=== PATIENT | male | born 1975 | race American Indian/Alaskan Native ===

== ENCOUNTER 2017-07-28 03:31 | Emergency (ER) | payer SELFPAY ==
[2017-07-28 04:21] VITALS: BP 128/75
--- NOTE | 2017-07-28 08:06 | Emergency Department Report ---
ED Male HPI - General Chief complaint: Urogenital-Male Stated complaint: PENIS PAIN Time Seen by Provider: 07/28/17 08:00 Source: patient Mode of arrival: Ambulatory Limitations: No Limitations - History of Present Illness Initial comments: 41-year-old -[place] male comes in for complaint of having pain in his penis he reports the pain 8 on a 10 about 2 days. Patient states he has no discharge no burning when he urinates states no pain swelling or discomfort to the scrotal testicle area. He reports he is sexually active with females for partners in the last year unprotected no past medical history currently takes no medications and has no known drug allergies. - Related Data Previous Rx's Medication Instructions Recorded Last Taken Type Nystatin Cream [Mycostatin Cream] 1 applic TP TID 7 Days #1 tube 07/28/17 Unknown Rx Allergies Allergy/AdvReac Type Severity Reaction Status Date / Time No Known Allergies Allergy Unverified 07/28/17 05:11 ED Review of Systems ROS: Stated complaint: PENIS PAIN Other details as noted in HPI Constitutional: denies: chills, fever Eyes: denies: eye pain, eye discharge, vision change ENT: denies: ear pain, throat pain Respiratory: denies: cough, shortness of breath, wheezing Cardiovascular: denies: chest pain, palpitations Endocrine: no symptoms reported Gastrointestinal: denies: abdominal pain, nausea, diarrhea Genitourinary: other (penis pain). denies: urgency, dysuria Musculoskeletal: denies: back pain, joint swelling, arthralgia Skin: denies: rash, lesions Neurological: denies: headache, weakness, paresthesias Psychiatric: denies: anxiety, depression Hematological/Lymphatic: denies: easy bleeding, easy bruising ED Past Medical Hx - Past Medical History Previous Medical History?: No - Surgical History Past Surgical History?: No - Social History Smoking Status: Current Every Day Smoker Substance Use Type: None - Medications Home Medications: Home Medications Medication Instructions Recorded Confirmed Last Taken Type Nystatin Cream [Mycostatin Cream] 1 applic TP TID 7 Days #1 tube 07/28/17 Unknown Rx ED Physical Exam - General Limitations: No Limitations General appearance: alert, in no apparent distress - Head Head exam: Present: atraumatic, normocephalic - GI/Abdominal GI/Abdominal exam: Present: soft, normal bowel sounds - exam: Present: circumcision, other (penis skin has a rash that is demarcated dry and a little scaly.). Absent: testicular tenderness, urethral discharge, scrotal swelling - Extremities Exam Extremities exam: Present: normal inspection - Neurological Exam Neurological exam: Present: alert, oriented X3 - Psychiatric Psychiatric exam: Present: normal affect, normal mood - Skin Skin exam: Present: warm, dry, intact, normal color, rash (penis) ED Course Vital Signs 07/28/17 07/28/17 04:17 05:13 Temperature 98.3 F 98.3 F Pulse Rate 71 69 Respiratory 18 18 Rate Blood Pressure 128/75 128/75 O2 Sat by Pulse 100 98 Oximetry ED Medical Decision Making - Medical Decision Making He been evaluated by this provider fast track. It appears the patient has maybe a tinea rash on the shaft of the penis. Discussed the patient I'll place him on antifungal medication for 10 to use good hygiene and follow up with his primary care provider in 3-5 days. Critical care attestation.: If time is entered above; I have spent that time in minutes in the direct care of this critically ill patient, excluding procedure time. ED Disposition Clinical Impression: Tinea Disposition: DC-01 TO HOME OR SELFCARE Is pt being admited?: No Does the pt Need Aspirin: No Condition: Stable Instructions: Jock Itch (ED) Additional Instructions: Please used the cream on your rash. Please use good hygiene. Follow up with her primary care provider if not getting better. Prescriptions: Nystatin Cream [Mycostatin Cream] 1 applic TP TID 7 Days #1 tube Referrals: PRIMARY CARE, [Primary Care Provider] - 3-5 Days BERTRAM NIELSON MD [Staff Physician] - 3-5 Days Forms: Work/School Release Form(ED)
[2017-07-28 09:21] LABS: Bilirubin,Urine NEG (Negative); Blood,Urine NEG (Negative); Color,Urine Yellow (Yellow); Mucus,Urine FEW /HPF; Nitrite,Urine NEG (Negative); Protein,Urine <15 mg/dL mg/dL (Negative)
== END 2017-07-28 08:34 | disposition home or self-care (01) ==
LOC: ED 03:31
DX: B35.9 Dermatophytosis, unspecified (principal); F17.200 Nicotine dependence, unspecified, uncomplicated
CPT/HCPCS: 81001; 87591; 99283

== ENCOUNTER 2018-12-08 20:02 | Emergency (ER) | payer SELFPAY ==
[2018-12-08 20:08] VITALS: BP 114/73
--- NOTE | 2018-12-08 20:49 | Event Note ---
ED Screening Note Date of service: 12/08/18 Time: 20:45 ED Screening Note: 43 y/o male comes in for herpes flare up. This initial assessment/diagnostic orders/clinical plan/treatment(s) is/are subject to change based on patients health status, clinical progression and re- assessment by fellow clinical providers in the ED. Further treatment and workup at subsequent clinical providers discretion. Patient/guardian urged not to elope from the ED as their condition may be serious if not clinically assessed and managed. Initial orders include:
--- NOTE | 2018-12-08 21:43 | Emergency Department Report ---
ED Male HPI - General Chief complaint: Urogenital-Male Stated complaint: OUTBREAK/HERPES Time Seen by Provider: 12/08/18 21:29 Source: patient Mode of arrival: Ambulatory Limitations: No Limitations - History of Present Illness Initial comments: 43 y/o male comes in for herpes flare up. rash to penis vesicles painful no penile discharge no fever no chills no abdominal pain no n/v hx genital herpes usually tx'd with jorge PHELPS Complaint: groin pain Onset/Timin -: days(s) Location: penis Radiation: none Severity: moderate Severity scale (0 -10): 5 Quality: burning Consistency: constant Improves with: none Worsens with: none rash - Related Data Sexually active: Yes (partner being treated ) Previous Rx's Medication Instructions Recorded Last Taken Type Nystatin Cream [Mycostatin Cream] 1 applic TP TID 7 Days #1 tube 07/28/17 Unknown Rx Valacyclovir HCl [Valtrex] 1,000 mg PO BID #20 tablet 12/08/18 Unknown Rx Allergies Allergy/AdvReac Type Severity Reaction Status Date / Time No Known Allergies Allergy Verified 12/08/18 20:04 ED Review of Systems ROS: Stated complaint: OUTBREAK/HERPES Other details as noted in HPI Constitutional: denies: chills, fever Eyes: denies: eye pain, eye discharge, vision change ENT: denies: ear pain, throat pain Respiratory: denies: cough, shortness of breath, wheezing Cardiovascular: denies: chest pain, palpitations Endocrine: no symptoms reported Gastrointestinal: denies: abdominal pain, nausea, diarrhea Genitourinary: other (rash vesicles ). denies: urgency, dysuria Musculoskeletal: denies: back pain, joint swelling, arthralgia Skin: denies: rash, lesions Neurological: denies: headache, weakness, paresthesias Psychiatric: denies: anxiety, depression Hematological/Lymphatic: denies: easy bleeding, easy bruising ED Past Medical Hx - Past Medical History Previous Medical History?: No - Surgical History Past Surgical History?: Yes Additional Surgical History: left ankle surgery - Social History Smoking Status: Current Every Day Smoker - Medications Home Medications: Home Medications Medication Instructions Recorded Confirmed Last Taken Type Nystatin Cream [Mycostatin Cream] 1 applic TP TID 7 Days #1 tube 07/28/17 Unknown Rx Valacyclovir HCl [Valtrex] 1,000 mg PO BID #20 tablet 12/08/18 Unknown Rx ED Physical Exam - General Limitations: No Limitations General appearance: alert, in no apparent distress - Head Head exam: Present: atraumatic, normocephalic - Eye Eye exam: Present: normal appearance, PERRL, EOMI Pupils: Present: normal accommodation - ENT ENT exam: Present: mucous membranes moist - Neck Neck exam: Present: normal inspection - Respiratory Respiratory exam: Present: normal lung sounds bilaterally. Absent: respiratory distress, wheezes, rales, rhonchi, stridor, chest wall tenderness - Cardiovascular Cardiovascular Exam: Present: regular rate, normal rhythm, normal heart sounds. Absent: systolic murmur, diastolic murmur, rubs, gallop - GI/Abdominal GI/Abdominal exam: Present: soft, normal bowel sounds. Absent: distended, tenderness, bruit, hernia - Rectal Rectal exam: Present: deferred - Extremities Exam Extremities exam: Present: normal inspection, full ROM, normal capillary refill - Back Exam Back exam: Present: normal inspection, full ROM. Absent: tenderness, CVA tenderness (R), CVA tenderness (L), rash noted - Neurological Exam Neurological exam: Present: alert, oriented X3, CN II-XII intact, normal gait, reflexes normal - Psychiatric Psychiatric exam: Present: normal affect, normal mood - Skin Skin exam: Present: warm, dry, intact, normal color. Absent: rash ED Course Vital Signs 12/08/18 20:07 Temperature 98.6 F Pulse Rate 82 Respiratory 18 Rate Blood Pressure 114/73 O2 Sat by Pulse 97 Oximetry ED Medical Decision Making - Medical Decision Making this is genital hsv outbreak plan valtrax as usual tx bid x 10 days pt will follow up with pcp in 2-3 days , follow up with [facility] department if unble to follow up with pcp . given referral to [facility]. Critical care attestation.: If time is entered above; I have spent that time in minutes in the direct care of this critically ill patient, excluding procedure time. ED Disposition Clinical Impression: Genital HSV Qualifiers: Herpes simplex infection site: penis Qualified Code(s): A60.01 - Herpesviral infection of penis Disposition: TO HOME OR SELFCARE Is pt being admited?: No Does the pt Need Aspirin: No Condition: Stable Instructions: Genital Herpes Simplex (ED) Prescriptions: Valacyclovir HCl [Valtrex] 1,000 mg PO BID #20 tablet Referrals: [facility] [Outside] - 3-5 Days [facility] [Outside] - 3-5 Days Forms: Work/School Release Form(ED) Time of Disposition: 21:46
== END 2018-12-08 22:54 | disposition home or self-care (01) ==
LOC: ED 20:02
DX: A60.01 Herpesviral infection of penis (principal); F17.200 Nicotine dependence, unspecified, uncomplicated
CPT/HCPCS: 99282

== ENCOUNTER 2019-01-04 11:33 | Emergency (ER) | payer BC, OTHER ==
[2019-01-04 11:58] VITALS: BP 201/94
--- NOTE | 2019-01-04 11:58 | Emergency Department Report ---
Blank Doc - Documentation Documentation: This is a 43-year-old male that presents with bilateral leg redness. Right leg does seem to have induration noted on exam. This initial assessment/diagnostic orders/clinical plan/treatment(s) is/are subject to change based on patient's health status, clinical progression and re- assessment by fellow clinical providers in the ED. Further treatment and workup at subsequent clinical providers discretion. Patient/guardians urged not to elope from the ED as their condition may be serious if not clinically assessed and managed. Initial orders include: 1- Patient sent to [facility] for further evaluation and treatment
[2019-01-04] MEDS ORDERED: TRIPLE ANTIBIOTIC TP ONE (13:22)
--- NOTE | 2019-01-04 13:25 | Emergency Department Report ---
Abscess Boil HPI - HPI Chief Complaint: Skin Rash Stated Complaint: RT LEG SPIDER BITES/PAIN Time Seen by Provider: 01/04/19 11:56 Duration: >1 Week Severity: Mild History: Yes Purulent Drainage, Yes Insect Bite, No Fever, No Pain, No Numbness, No Foreign Body, No Previous History HPI: Patient is a 43-year-old male comes to the ER with insect bites on his lower legs. The insect bites are open and draining. Patient states he popped them. He does on to explain that he was unable to get his valacyclovir field because of a check issue. And when he was here last time he did not get his nystatin prescription. There is a prescription in the system for the nystatin but the patient states that he never caught it. His vital signs are stable he is nontoxic ambulatory on assessment. Home Medications: Previous Rx's Medication Instructions Recorded Last Taken Type Amoxicillin [Trimox CAP] 500 mg PO BID #20 capsule 01/04/19 Unknown Rx Nystatin Cream [Mycostatin Cream] 1 applic TP TID 7 Days #1 tube 01/04/19 Unknown Rx Valacyclovir HCl [Valtrex] 1,000 mg PO BID #20 tablet 01/04/19 Unknown Rx Allergies/Adverse Reactions: Allergies Allergy/AdvReac Type Severity Reaction Status Date / Time No Known Allergies Allergy Verified 12/08/18 20:04 ED Review of Systems ROS: Stated complaint: RT LEG SPIDER BITES/PAIN Other details as noted in HPI Comment: All other systems reviewed and negative ED Past Medical Hx - Past Medical History Previous Medical History?: Yes Additional medical history: herpes - Surgical History Past Surgical History?: Yes Additional Surgical History: left ankle surgery - Social History Smoking Status: Current Every Day Smoker Substance Use Type: Marijuana - Medications Home Medications: Home Medications Medication Instructions Recorded Confirmed Last Taken Type Amoxicillin [Trimox CAP] 500 mg PO BID #20 capsule 01/04/19 Unknown Rx Nystatin Cream [Mycostatin Cream] 1 applic TP TID 7 Days #1 tube 01/04/19 Unknown Rx Valacyclovir HCl [Valtrex] 1,000 mg PO BID #20 tablet 01/04/19 Unknown Rx ED Abscess Boil Physical Exam - Exam General: Vital signs noted. No distress. Alert and acting appropriately. Exam: WDWN patient in NAD. VS per RN flow sheet. Alert and oriented to person, place and time. S1-S2. No S3 or S4. No systolic or diastolic murmur. No JVD. No pitting edema. HR 90. bp 160/58. Lungs clear to auscultation bilaterally anteriorly and posteriorly. Abdomen soft nontender bowel sounds x 4. Moves all extremities well. Mood and affect appropriate. numerous small insect bites on legs. pt has "popped them" and they are draining ED Course Vital Signs 01/04/19 11:56 Temperature 98.5 F Pulse Rate 109 H Respiratory 18 Rate Blood Pressure 201/94 O2 Sat by Pulse 98 Oximetry Critical care attestation.: If time is entered above; I have spent that time in minutes in the direct care of this critically ill patient, excluding procedure time. ED Medical Decision Making - Medical Decision Making bites cleaned pt instructed on wound care. dc home with dc plan of care VS rechecked by provider. see assessment Vital Signs 01/04/19 11:56 Temperature 98.5 F Pulse Rate 109 H Respiratory 18 Rate Blood Pressure 201/94 O2 Sat by Pulse 98 Oximetry ED Disposition Clinical Impression: Insect bite, Medication refill, Secondary infection of skin, Herpes Disposition: DC-01 TO HOME OR SELFCARE Is pt being admited?: No Does the pt Need Aspirin: No Condition: Stable Instructions: Insect Bite or Sting (ED) Additional Instructions: DIET TOLERATED MEDS ORDERED TODAY IN ER FOLLOW INSTRUCTIONS ON THE BOTTLE FOLLOW UP PCP WITHIN 48 HOURS TO ENSURE YOU ARE GETTING BETTER ACTIVITY TOLERATED MOTRIN OR TYLENOL FOR PAIN OR FEVER RETURN TO THE ER FOR WORSENING SYMPTOMS NOT RELIEVED BY YOUR MEDICATIONS. Prescriptions: Nystatin Cream [Mycostatin Cream] 1 applic TP TID 7 Days #1 tube Amoxicillin [Trimox CAP] 500 mg PO BID #20 capsule Valacyclovir HCl [Valtrex] 1,000 mg PO BID #20 tablet Referrals: BETHANY ABAD MD [Primary Care Provider] - 3-5 Days Time of Disposition: 13:24
== END 2019-01-04 13:37 | disposition home or self-care (01) ==
LOC: ED 11:33
DX: S80.861A Insect bite (nonvenomous), right lower leg, initial encounter (principal); F17.200 Nicotine dependence, unspecified, uncomplicated; F12.10 Cannabis abuse, uncomplicated; Z76.0 Encounter for issue of repeat prescription; W57.XXXA Bitten or stung by nonvenomous insect and other nonvenomous arthropods, initial encounter; Y93.89 Activity, other specified; Y92.89 Other specified places as the place of occurrence of the external cause; Y99.8 Other external cause status
CPT/HCPCS: 99282

== ENCOUNTER 2019-08-10 17:31 | Emergency (ER) | payer SELFPAY ==
[2019-08-10 18:18] VITALS: BP 117/68
--- NOTE | 2019-08-10 20:35 | Emergency Department Report ---
- General Chief complaint: Extremity Injury, Lower Stated complaint: INFECTED TOES Time Seen by Provider: 08/10/19 20:28 Source: patient Mode of arrival: Ambulatory Limitations: No Limitations - History of Present Illness Initial comments: pt is a 43 yo who presents to the ED with c/o "an infection" to his right foot that began three weeks ago. he states he went to [facility] on 07/10/2019 and was given a prescription for keflex but it came right back. he states he also had an XR of the foot which was normal. he does not remember getting bit by anything or getting scratched. he states that two days ago he manually expressed it and purulent drainage came out. PMHx Hep B. no allergies to meds. - Related Data Previous Rx's Medication Instructions Recorded Last Taken Type Amoxicillin [Trimox CAP] 500 mg PO BID #20 capsule 01/04/19 Unknown Rx Nystatin Cream [Mycostatin Cream] 1 applic TP TID 7 Days #1 tube 01/04/19 Unknown Rx Valacyclovir HCl [Valtrex] 1,000 mg PO BID #20 tablet 01/04/19 Unknown Rx Mupirocin [Bactroban 2%] 1 applic TP TID #1 tube 08/10/19 Unknown Rx Sulfamethoxazole/Trimethoprim 2 each PO BID 10 Days #40 tablet 08/10/19 Unknown Rx [Bactrim DS TAB] Allergies Allergy/AdvReac Type Severity Reaction Status Date / Time No Known Allergies Allergy Verified 12/08/18 20:04 Abscess Boil HPI - HPI Chief Complaint: Extremity Injury, Lower Stated Complaint: INFECTED TOES Time Seen by Provider: 08/10/19 20:28 Home Medications: Previous Rx's Medication Instructions Recorded Last Taken Type Amoxicillin [Trimox CAP] 500 mg PO BID #20 capsule 01/04/19 Unknown Rx Nystatin Cream [Mycostatin Cream] 1 applic TP TID 7 Days #1 tube 01/04/19 Unknown Rx Valacyclovir HCl [Valtrex] 1,000 mg PO BID #20 tablet 01/04/19 Unknown Rx Mupirocin [Bactroban 2%] 1 applic TP TID #1 tube 08/10/19 Unknown Rx Sulfamethoxazole/Trimethoprim 2 each PO BID 10 Days #40 tablet 08/10/19 Unknown Rx [Bactrim DS TAB] Allergies/Adverse Reactions: Allergies Allergy/AdvReac Type Severity Reaction Status Date / Time No Known Allergies Allergy Verified 12/08/18 20:04 ED Review of Systems ROS: Stated complaint: INFECTED TOES Other details as noted in HPI Comment: All other systems reviewed and negative ED Past Medical Hx - Past Medical History Previous Medical History?: No Additional medical history: herpes - Surgical History Past Surgical History?: No Additional Surgical History: left ankle surgery - Social History Smoking Status: Current Every Day Smoker Substance Use Type: Marijuana - Medications Home Medications: Home Medications Medication Instructions Recorded Confirmed Last Taken Type Amoxicillin [Trimox CAP] 500 mg PO BID #20 capsule 01/04/19 Unknown Rx Nystatin Cream [Mycostatin Cream] 1 applic TP TID 7 Days #1 tube 01/04/19 U nknown Rx Valacyclovir HCl [Valtrex] 1,000 mg PO BID #20 tablet 01/04/19 Unknown Rx Mupirocin [Bactroban 2%] 1 applic TP TID #1 tube 08/10/19 Unknown Rx Sulfamethoxazole/Trimethoprim 2 each PO BID 10 Days #40 tablet 08/10/19 Unknown Rx [Bactrim DS TAB] ED Physical Exam - General Limitations: No Limitations General appearance: alert, in no apparent distress - Head Head exam: Present: atraumatic, normocephalic - Eye Eye exam: Present: normal appearance - ENT ENT exam: Present: mucous membranes moist - Neurological Exam Neurological exam: Present: alert, oriented X3 - Psychiatric Psychiatric exam: Present: normal affect, normal mood - Skin Skin exam: Present: warm, other (ulceration present between the small toe and the 4th toe, there is small amount of purulent drainage, no surrounding erythema, no surrounding warmth) ED Course Vital Signs 08/10/19 18:16 Temperature 98.1 F Pulse Rate 80 Respiratory 16 Rate Blood Pressure 117/68 O2 Sat by Pulse 100 Oximetry Critical care attestation.: If time is entered above; I have spent that time in minutes in the direct care of this critically ill patient, excluding procedure time. ED Disposition Clinical Impression: Ulcer of right foot Qualifiers: Non-pressure ulcer stage: limited to breakdown of skin Qualified Code(s): L97.511 - Non-pressure chronic ulcer of other part of right foot limited to breakdown of skin Cellulitis Qualifiers: Site of cellulitis: extremity Site of cellulitis of extremity: lower extremity Laterality: right Qualified Code(s): L03.115 - Cellulitis of right lower limb Disposition: DC-01 TO HOME OR SELFCARE Is pt being admited?: No Does the pt Need Aspirin: No Condition: Stable Instructions: Cellulitis (ED), Acute Wound Care (ED), Pressure Ulcer (ED) Additional Instructions: please use medication as prescribed. increase your water intake. keep area clean and dry. wash with soap and water and immediately dry. soak in epsom salt. change socks frequently, do not let feet get wet. follow up with a primary care doctor in the next 3 days. the area needs to be reexamined in 3 days. return to the emergency room immediately for any new or worsening symptoms. Prescriptions: Sulfamethoxazole/Trimethoprim [Bactrim DS TAB] 2 each PO BID 10 Days #40 tablet Mupirocin [Bactroban 2%] 1 applic TP TID #1 tube Referrals: CONNER ESTRADA MD [Staff Physician] - 2-3 Days [facility] [Outside] - 2-3 Days [facility] [Outside] - 2-3 Days Time of Disposition: 20:38 Print Language: ROMANIAN
[2019-08-10] MEDS ORDERED: SULFAMETHOXAZOLE/TRIMETHOPRIM 800/160MG DS TAB PO ONE (20:36)
[2019-08-10] MEDS ORDERED: SULFAMETHOXAZOLE/TRIMETHOPRIM 800/160MG DS TAB ONE (20:39)
== END 2019-08-10 20:40 | disposition home or self-care (01) ==
LOC: ED 17:31
DX: L97.511 Non-pressure chronic ulcer of other part of right foot limited to breakdown of skin (principal); L03.115 Cellulitis of right lower limb; F17.200 Nicotine dependence, unspecified, uncomplicated; F12.10 Cannabis abuse, uncomplicated; Z98.890 Other specified postprocedural states; Z79.899 Other long term (current) drug therapy
CPT/HCPCS: 99282

== ENCOUNTER 2019-08-23 23:01 | Emergency (ER) | payer SELFPAY ==
[2019-08-24] MEDS ORDERED: predniSONE 20 MG TAB PO ONE (04:34)
[2019-08-24] MEDS ORDERED: IBUPROFEN 600 MG TAB PO ONE (04:34)
--- NOTE | 2019-08-24 05:06 | Emergency Department Report ---
ED General Adult HPI - General Chief complaint: Extremity Injury, Upper Stated complaint: LT WRIST UNABLE TO LIFT Source: patient Mode of arrival: Ambulatory Limitations: No Limitations - History of Present Illness Initial comments: Patient is a 43-year-old -[place] male with a history of osteoarthritis who presents to the ED with complaint of worsening bilateral knee pain, left wrist and left forearm and elbow pain with numbness and tingling sensations for the last 3 days. 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 Patient denies dizziness, nausea, vomiting, traumatic injury, fall, chest pain or shortness of breath, back pain, neck pain, fever and chills or abdominal pain and hip pain. MD Complaint: Bilateral knee pain; left wrist pain -: Sudden, days(s) (3) Location: upper extremity (left wrist and forearm tingling and numbness), lower extremity (bilateral knees) Radiation: non-radiation Severity scale (0 -10): 10 Quality: aching, sharp Consistency: constant Improves with: none Worsens with: none Associated Symptoms: denies other symptoms. denies: confusion, chest pain, cough, diaphoresis, fever/chills, headaches, loss of appetite, malaise, nausea/vomiting, rash, shortness of breath, syncope, weakness Treatments Prior to Arrival: none - Related Data Previous Rx's Medication Instructions Recorded Last Taken Type Amoxicillin [Trimox CAP] 500 mg PO BID #20 capsule 01/04/19 Unknown Rx Nystatin Cream [Mycostatin Cream] 1 applic TP TID 7 Days #1 tube 01/04/19 Unknown Rx Valacyclovir HCl [Valtrex] 1,000 mg PO BID #20 tablet 01/04/19 Unknown Rx Mupirocin [Bactroban 2%] 1 applic TP TID #1 tube 08/10/19 Unknown Rx Sulfamethoxazole/Trimethoprim 2 each PO BID 10 Days #40 tablet 08/10/19 Unknown Rx [Bactrim DS TAB] Naproxen 500 mg PO Q12H PRN #30 tablet 08/24/19 Unknown Rx predniSONE [Deltasone] 40 mg PO QDAY #12 tab 08/24/19 Unknown Rx tiZANidine [Zanaflex 4mg TAB] 4 mg PO Q8H PRN #21 tablet 08/24/19 Unknown Rx Allergies Allergy/AdvReac Type Severity Reaction Status Date / Time No Known Allergies Allergy Verified 12/08/18 20:04 ED Review of Systems ROS: Stated complaint: LT WRIST UNABLE TO LIFT Other details as noted in HPI Constitutional: denies: chills, fever Eyes: denies: eye pain, eye discharge, vision change ENT: denies: ear pain, throat pain Respiratory: denies: cough, shortness of breath, wheezing Cardiovascular: denies: chest pain, palpitations Endocrine: no symptoms reported Gastrointestinal: denies: abdominal pain, nausea, diarrhea Genitourinary: denies: urgency, dysuria Musculoskeletal: arthralgia (bilateral knee pain; left wrist, forearm and elbow pain), myalgia. denies: back pain, joint swelling Skin: denies: rash, lesions Neurological: denies: headache, weakness, paresthesias Psychiatric: denies: anxiety, depression Hematological/Lymphatic: denies: easy bleeding, easy bruising ED Past Medical Hx - Past Medical History Previous Medical History?: No Additional medical history: herpes - Surgical History Past Surgical History?: Yes Additional Surgical History: left ankle surgery - Social History Smoking Status: Current Every Day Smoker Substance Use Type: Marijuana - Medications Home Medications: Home Medications Medication Instructions Recorded Confirmed Last Taken Type Amoxicillin [Trimox CAP] 500 mg PO BID #20 capsule 01/04/19 Unknown Rx Nystatin Cream [Mycostatin Cream] 1 applic TP TID 7 Days #1 tube 01/04/19 Unknown Rx Valacyclovir HCl [Valtrex] 1,000 mg PO BID #20 tablet 01/04/19 Unknown Rx Mupirocin [Bactroban 2%] 1 applic TP TID #1 tube 08/10/19 Unknown Rx Sulfamethoxazole/Trimethoprim 2 each PO BID 10 Days #40 tablet 08/10/19 Unknown Rx [Bactrim DS TAB] Naproxen 500 mg PO Q12H PRN #30 tablet 08/24/19 Unknown Rx predniSONE [Deltasone] 40 mg PO QDAY #12 tab 08/24/19 Unknown Rx tiZANidine [Zanaflex 4mg TAB] 4 mg PO Q8H PRN #21 tablet 08/24/19 Unknown Rx ED Physical Exam - General Limitations: No Limitations General appearance: alert, in no apparent distress - Head Head exam: Present: atraumatic, normocephalic, normal inspection - Eye Eye exam: Present: normal appearance, PERRL, EOMI Pupils: Present: normal accommodation - ENT ENT exam: Present: normal exam, normal orophraynx, mucous membranes moist, TM's normal bilaterally, normal external ear exam - Neck Neck exam: Present: normal inspection, full ROM. Absent: tenderness, lymphadenopathy - Respiratory Respiratory exam: Present: normal lung sounds bilaterally. Absent: respiratory distress, wheezes, rales, stridor, chest wall tenderness, accessory muscle use, decreased breath sounds - Cardiovascular Cardiovascular Exam: Present: regular rate, normal rhythm, normal heart sounds. Absent: systolic murmur, diastolic murmur, rubs, gallop - GI/Abdominal GI/Abdominal exam: Present: soft, normal bowel sounds. Absent: tenderness, guarding, hyperactive bowel sounds, hypoactive bowel sounds, organomegaly - Extremities Exam Extremities exam: Present: normal inspection, full ROM, tenderness (Palpable bilateral knee tenderness; palpable left elbow and left wrist tenderness.), normal capillary refill. Absent: pedal edema, joint swelling, calf tenderness - Back Exam Back exam: Present: normal inspection, full ROM. Absent: tenderness, CVA tenderness (R), CVA tenderness (L), muscle spasm, paraspinal tenderness, vertebral tenderness - Neurological Exam Neurological exam: Present: alert, oriented X3, CN II-XII intact, normal gait, reflexes normal - Psychiatric Psychiatric exam: Present: normal affect, normal mood - Skin Skin exam: Present: warm, dry, intact, normal color. Absent: rash ED Course Vital Signs 08/23/19 08/24/19 23:30 04:52 Temperature 97.5 F L Pulse Rate 104 H Respiratory 18 18 Rate Blood Pressure 116/84 O2 Sat by Pulse 99 Oximetry ED Medical Decision Making - Radiology Data Radiology results: report reviewed - Medical Decision Making This is a 43-year-old male who presented to the ED with complaint of acute onset persistent nontraumatic bilateral knee pain and left forearm, elbow and wrist numbness and tingling sensations with pain. In the ED, patient is alert and oriented x3 and is not in any distress with normal vital signs. Patient was treated for pain in the ED with anti-inflammatory medications. The left wrist was splinted with Velcro splint and the patient discharged home on pain medications. Patient was given a referral to the [facility] for further evaluation. Patient was advised return to the ED immediately if symptoms get worse. - Differential Diagnosis Osteoparthritis; muscle strain; carpal tunnel syndrome; radiculopathy Critical care attestation.: If time is entered above; I have spent that time in minutes in the direct care of this critically ill patient, excluding procedure time. ED Disposition Clinical Impression: Cervical radiculopathy DJD (degenerative joint disease) of knee Qualifiers: Osteoarthritis type: primary Laterality: bilateral Qualified Code(s): M17.0 - Bilateral primary osteoarthritis of knee Muscle strain of left wrist Qualifiers: Encounter type: initial encounter Qualified Code(s): S66.912A - Strain of unspecified muscle, fascia and tendon at wrist and hand level, left hand, initial encounter Disposition: TO HOME OR SELFCARE Is pt being admited?: No Does the pt Need Aspirin: No Condition: Stable Instructions: Muscle Strain (ED), Cervical Radiculopathy (ED), Osteoarthritis (ED) Additional Instructions: Take medication with food, drink plenty of fluids and follow-up with his outside community clinic in 5 to 7 days for reevaluation. Contact the clinic to schedule a follow-up appointment in the next 3 to 5 days. Return to the ED immediately if symptoms get worse. Prescriptions: predniSONE [Deltasone] 40 mg PO QDAY #12 tab Naproxen 500 mg PO Q12H PRN #30 tablet PRN Reason: Pain , Severe (7-10) tiZANidine [Zanaflex 4mg TAB] 4 mg PO Q8H PRN #21 tablet PRN Reason: Muscle Spasm Referrals: [facility] [Outside] - 3-5 Days Forms: Work/School Release Form(ED) Time of Disposition: 05:12 Print Language: WELSH
[2019-08-24 05:50] VITALS: BP 115/77
== END 2019-08-24 06:25 | disposition home or self-care (01) ==
LOC: ED 23:01
DX: S66.912A Strain of unspecified muscle, fascia and tendon at wrist and hand level, left hand, initial encounter (principal); M17.0 Bilateral primary osteoarthritis of knee; M54.12 Radiculopathy, cervical region; F17.200 Nicotine dependence, unspecified, uncomplicated; F12.10 Cannabis abuse, uncomplicated; Z87.891 Personal history of nicotine dependence; Z98.890 Other specified postprocedural states; Z79.899 Other long term (current) drug therapy
CPT/HCPCS: 29125; 99283; J7512